=== PATIENT | male | born 1950 | race Caucasian/White ===

== ENCOUNTER 2022-02-23 13:19 | Inpatient (IN) | payer OTHER ==
[~2022-02-23] VITALS: Ht 165.1 cm; Wt 68.0 kg
[~2022-02-23 13:19] MED LIST: AFEDITAB CR30 MG; ATIVAN2 MG; AZILECT1 MG; CARBIDOPA-LEVO1 TAB; CARVEDILOL6.25 MG PO; CELEBREX100 MG; CELEBREX100 MG PO; CRESTOR10 MG; DETROL LA4 MG; JANUMET 50-1,1 UDTAB; MIRAPEX1 MG; NABUMETONE500 MG PO; PERCOCET 5/3251 TAB PO; TEKTURNA150 MG; TEXTURNA; TOPROL; TOPROL XL50 MG; [UNRECOGNIZED DRUG - OTHER]; [UNRECOGNIZED DRUG - OTHER]
--- NOTE | 2022-02-23 13:23 | NUR ---
PACIENTE MASCULINO ALERTA Y ORIENTADO X3, LLEGA A GROVER EN AMBULANCIA. REFIERE EL ACOPANANTE QUE SE ENCUENTRA CON DIFICULTAD RESPIRATORIA.
--- NOTE | 2022-02-23 14:04 | NUR ---
SE RECIBE Y SE UBICA EN EL AREA DE CRITICO EN EL CUBICULO #2 EN CAMA CON BARANDAS ELEVADA Y TIMBRE ACCESIBLE, PTE SE OBSERVA CON DIFICULTAD AL RESPIRAR. SE CONECTA A MONITOR CARDIACO Y OXYMETRIA DE PULSO, SE ORIENTA AL FAMILIR SOBRE EL TRATAMIENTO ORDNEADO POR EL DR ACOSTAI SE RELAIZAN MUESTRAS DE LABORTORIO Y SE ADMINISTRAN MEDICAMENTOS ROZINA ORDENADO. PTE SE MANTIENE EN OBSERVACION Y BAJO TRATAMIENTO POR CAMBIOS.
[2022-02-24] MEDS ORDERED: TOPROL XL25 M1 (08:10)
[2022-03-06] MEDS ORDERED: AMLODIPINE BESYL5 MG PO (09:16)
[2022-03-06] MEDS ORDERED: CARVEDILOL12.5 MG PO (09:16)
[2022-03-06] MEDS ORDERED: COZAAR50 MG PO (09:16)
[2022-03-06] MEDS ORDERED: SIMVASTATIN10 MG PO (09:16)
[2022-03-06] MEDS ORDERED: SINEMET 25-1001 EACH NGT (09:17)
[2022-03-06] MEDS ORDERED: AMANTIDINE PO (09:20)
== END 2022-03-06 19:23 | disposition other institution (70) | DRG 177 ==
LOC: ER 13:19 → ICU 20:02 → MEDJ 02-27 15:39
PROVIDERS: ADMIT Internal Medicine; ATTEND Internal Medicine
PROC: BW2FZZZ Computerized Tomography (CT Scan) of Neck (ICD-10-PCS; 2022-02-23)
PROC: BW24ZZZ Computerized Tomography (CT Scan) of Chest and Abdomen (ICD-10-PCS; 2022-02-23)
PROC: B24BZZZ Ultrasonography of Heart with Aorta (ICD-10-PCS; 2022-02-25)
PROC: 4A12X4Z Monitoring of Cardiac Electrical Activity, External Approach (ICD-10-PCS; principal; 2022-02-27)
DX: J69.0 Pneumonitis due to inhalation of food and vomit (principal); A41.9 Sepsis, unspecified organism; G24.09 Other drug induced dystonia; N17.8 Other acute kidney failure; N39.0 Urinary tract infection, site not specified; R09.02 Hypoxemia; E86.0 Dehydration; R13.19 Other dysphagia; G20 Parkinson's disease; E87.6 Hypokalemia; Z74.01 Bed confinement status; G31.89 Other specified degenerative diseases of nervous system; I25.10 Atherosclerotic heart disease of native coronary artery without angina pectoris; Z95.1 Presence of aortocoronary bypass graft; I10 Essential (primary) hypertension; F32.9 Major depressive disorder, single episode, unspecified; E11.9 Type 2 diabetes mellitus without complications